=== PATIENT | male | born 1960 | race Hispanic/Latino ===

== ENCOUNTER 2020-07-02 20:43 | Emergency (ER) | payer SELFPAY ==
[2020-07-02] MEDS ORDERED: Ibuprofen 800 MG TAB ONE (21:47)
== END 2020-07-02 21:48 | disposition home or self-care (01) ==
LOC: NAV ERS 20:43
DX: T63.441A Toxic effect of venom of bees, accidental (unintentional), initial encounter (principal)
CPT/HCPCS: 99282